=== PATIENT | male | born 1970 | race African-American/Black ===

== ENCOUNTER 2020-09-03 07:33 | Emergency (ER) | payer BC ==
[~2020-09-03] VITALS: Ht 165.1 cm; Wt 199.6 kg
[2020-09-03 08:02] LABS: ABSOLUTE NEUTROPHILS 3.9 thou/uL (1.4-8.2); BASOPHILS 1.5 % (0.0-2.0); EOSINOPHILS 1.8 % (0.0-3.0); HEMATOCRIT 36.9 % (42.0-52.0); HEMOGLOBIN 11.4 gm/dL (14.0-18.0); MCH 26.8 pg (26.0-34.0); MCV 86.5 fL (80.0-100.0); MONOCYTES 9.5 % (1.0-8.0); PLATELET COUNT 226 thou/uL (150-400); POLYS 61.2 % (36.0-66.0); RBC 4.26 mil/uL (4.50-6.00); RDW 15.2 % (10.5-14.5); WBC 6.3 thou/uL (4.0-11.0)
[2020-09-03 08:10] LABS: ANION GAP 8 mmol/L (7-16); BUN 43 mg/dL (7-18); CALCIUM 8.5 mg/dL (8.5-10.1); CHLORIDE 112 mmol/L (98-107); CO2 23 mmol/L (21-32); CREATININE 4.4 mg/dL (0.7-1.3); GLUCOSE 85 mg/dL (74-106); POTASSIUM 5.1 mmol/L (3.5-5.1); SODIUM 143 mmol/L (136-145)
[2020-09-03 08:20] LABS: ALBUMIN 2.8 g/dL (3.4-5.0); SGOT 71 U/L (15-37); SGPT 73 U/L (16-63); TOTAL BILIRUBIN 0.2 mg/dL (0.2-1.0); TOTAL PROTEIN 7.2 g/dL (6.4-8.2); TROPONIN-I <0.06 ng/mL (<0.06)
--- NOTE | 2020-09-03 08:34 | EKG ---
[address] [place] [address] ELECTROCARDIOGRAM REPORT Name: TONY HOLGUIN [id number] Admission: 09/03/20 Attend Phys: Discharge: Date of : 70 Report #: [id number] [facility] ED Test Date: 2020-09-03 Test Time: 08:06:11 Pat Name: TONY HOLGUIN Department: Room: Gender: M [facility] Consultant: siddharth gama : 1970 Requested By: Bessie Wood Order Number: [id number] MD: Melchor Goins Measurements Intervals [place] Rate: 76 P: 61 AL: 198 QRS: 31 QRSD: 94 T: 17 QT: 369 QTc: 415 Interpretive Statements Sinus rhythm Abnormal R-wave progression, late transition Baseline wander in lead(s) V2 No previous ECG available for comparison Electronically Signed On 09-03-2020 8:34:15 CDT by Melchor Goins [email or web address] <ELECTRONICALLY SIGNED> By: Melchor Goins MD, [facility] 09/03/20 0834 [id number] Melchor Goins MD, FACC /EPI
[2020-09-03 08:42] LABS: URINE BILIRUBIN NEGATIVE (Negative); URINE BLOOD 1+ (Negative); URINE CLARITY CLEAR; URINE COLOR YELLOW; URINE GLUCOSE-RANDOM* NEGATIVE (Negative); URINE KETONES NEGATIVE (Negative); URINE LEUKOCYTES-REFLEX NEGATIVE (Negative); URINE NITRITE-REFLEX NEGATIVE (Negative); URINE PROTEIN (DIPSTICK) 3+ (Negative); URINE SPECIFIC GRAVITY 1.025 (1.005-1.035); URINE UROBILINOGEN 0.2 E.U./dl (0.2-1.0)
[2020-09-03 08:51] LABS: SQUAMOUS 0-3 Few /LPF (0-3)
[2020-09-03 08:52] LABS: BACTERIA-REFLEX None Seen /HPF (None Seen); CASTS None Seen /LPF (None Seen); CRYSTALS None Seen /LPF (None Seen); URINE RBC None Seen /HPF (NONE SEEN); URINE WBC-REFLEX None Seen /HPF (0-5)
[2020-09-03 09:29] VITALS: BP 186/87
== END 2020-09-03 11:55 | disposition home or self-care (01) ==
LOC: ER 07:33
PROVIDERS: Emergency Medicine
DX: K80.50 Calculus of bile duct without cholangitis or cholecystitis without obstruction (principal); I10 Essential (primary) hypertension; E78.5 Hyperlipidemia, unspecified; Z98.84 Bariatric surgery status; Z98.890 Other specified postprocedural states; Z88.0 Allergy status to penicillin